=== PATIENT | male | born 1995 | race Hispanic/Latino ===

== ENCOUNTER 2017-04-09 08:16 | Emergency (ER) | payer OTHER ==
[2017-04-09] MEDS ORDERED: DICY20TA (09:13)
[2017-04-09] MEDS ORDERED: ACETAMINOPHEN (09:13)
[2017-04-09] MEDS ORDERED: CARA1TAB6 (09:13)
[2017-04-09] MEDS ORDERED: Omeprazole (09:13)
[2017-04-09] MEDS ORDERED: Metoclopramide (09:13)
[2017-04-09] MEDS ORDERED: CODEINE (09:13)
[2017-04-09] MEDS ORDERED: NS 1,000 ML IV ONE (09:30)
[2017-04-09] MEDS ORDERED: ONDANSETRON 4MG/2ML VIAL (J2405) IV ONE (09:30)
[2017-04-09] MEDS ORDERED: MORPHINE 4 MG/ML 1ML SYRINGE IV PRN (09:30)
[2017-04-09] MEDS ORDERED: GASTROGRAFIN SOLUTION 30ML (Q9963) As Ordered ONE (09:40)
[2017-04-09 09:54] LABS: BASO % 0.3 % (0.0-1.0); EOS % 0.1 % (0.0-3.0); IMMATURE GRANULOCYTE % 0.3 % (0-0); LYMPH # 1.7 10^3/uL (1.5-6.5); LYMPH % 15.3 % (24.0-44.0); MEAN CORPUSCULAR HEMOGLOBIN 30.4 pg (27.0-33.0); MEAN CORPUSCULAR HGB CONC 34.6 g/dl (32.0-36.5); MEAN CORPUSCULAR VOLUME 87.9 fl (80.0-96.0); MONO # 0.6 10^3/uL (0.0-0.8); MONO % 5.5 % (0.0-5.0); NEUTROPHILS # 8.6 10^3/uL (1.8-7.7); NEUTROPHILS % 78.5 % (36.0-66.0); PLATELET COUNT, AUTOMATED 215 10^3/uL (150-450); RED CELL DISTRIBUTION WIDTH 12.6 % (11.5-14.5)
[2017-04-09 09:56] LABS: ADD MANUAL DIFFER NO; DIFF SLIDE NUMBER 142
[2017-04-09 10:18] LABS: ALBUMIN 4.5 GM/DL (3.2-5.2); ALBUMIN/GLOBULIN RATIO 1.13 (1.00-1.93); ALKALINE PHOSPHATASE 61 U/L (45-117); ALT/SGPT 24 U/L (12-78); ANION GAP 8 MEQ/L (8-16); AST/SGOT 18 U/L (15-37); BILIRUBIN,DIRECT 0.4 MG/DL (0.0-0.2); BILIRUBIN,TOTAL 1.6 MG/DL (0.2-1.0); BLOOD UREA NITROGEN 17 MG/DL (7-18); CALCIUM LEVEL 9.3 MG/DL (8.5-10.1); CARBON DIOXIDE LEVEL 28 MEQ/L (21-32); CHLORIDE LEVEL 102 MEQ/L (98-107); CREATININE FOR GFR 0.94 MG/DL (0.70-1.30); GLOMERULAR FILTRATION RATE > 60.0 (>60); GLUCOSE, FASTING 85 MG/DL (70-105); SODIUM LEVEL 138 MEQ/L (136-145); TOTAL PROTEIN 8.5 GM/DL (6.4-8.2)
[2017-04-09] MEDS ORDERED: METOCLOPRAMIDE INJ 10MG/2ML VIAL (J2765) IV ONE (11:00)
[2017-04-09] MEDS ORDERED: GASTROGRAFIN SOLUTION 30ML (Q9963) PO ONE ×2 (11:00→11:30)
[2017-04-09] MEDS ORDERED: ISOVUE-370 76% 100ML VIAL (Q9967) As Ordered ONE (13:02)
--- NOTE | 2017-04-09 13:31 | REP ---
CT of the abdomen pelvis with IV and bowel contrast: Comparison is 04/16/2014. The visualized lung nguyen are unremarkable and unchanged. The hepatic parenchyma, pancreas and spleen are normal size and unremarkable. There are surgical clips in the gallbladder fossa. This is unchanged. The adrenals, kidneys and abdominal aorta are unremarkable. There is no perigastric inflammation. There is no bowel distension. Mesentery is unremarkable. Pelvis: The appendix is unremarkable. There is descending colon and sigmoid colon diverticulosis without diverticulitis. The bladder is unremarkable. There is no pelvic adenopathy or ascites. Impression: The patient has a cholecystectomy. Otherwise, negative CT of the abdomen and pelvis. Signed by Hiren Cortes MD 04/09/2017 01:23 P
[2017-04-09] MEDS ORDERED: ZOFR4TAB3 PO (13:38)
[2017-04-09 13:48] VITALS: BP 144/77
== END 2017-04-09 13:54 | disposition home or self-care (01) ==
LOC: M ED 08:16
DX: R11.2 Nausea with vomiting, unspecified (principal); R10.13 Epigastric pain; K58.0 Irritable bowel syndrome with diarrhea; K21.9 Gastro-esophageal reflux disease without esophagitis; Z88.8 Allergy status to other drugs, medicaments and biological substances
CPT/HCPCS: 74177; 80048; 80076; 81001; 83690; 85025; 96361; 96374; 96375; 99283; J2405; J2765; Q9963; Q9967